=== PATIENT | female | born 2000 | race Caucasian/White ===

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

== ENCOUNTER 2019-05-14 11:47 | Emergency (ER) | payer MEDICAID ==
[~2019-05-14] VITALS: Ht 160 cm; Wt 81.6 kg
[2019-05-14 11:47] VITALS: BP_SYST 118
[2019-05-14 12:36] VITALS: BP_SYST 118
== END 2019-05-14 12:34 | disposition home or self-care (01) ==
LOC: SED 11:47
DX: R51 Headache (principal); J45.909 Unspecified asthma, uncomplicated
CPT/HCPCS: 99282

== ENCOUNTER 2020-03-31 20:25 | Emergency (ER) | payer MEDICAID ==
[~2020-03-31] VITALS: Ht 160 cm; Wt 90.7 kg
[2020-03-31 20:30] VITALS: BP_SYST 142
--- NOTE | 2020-03-31 20:30 | NUR ---
Patient triaged and placed in waiting room. VSS and patient appears in no acute distress at this time. Accompanied by MOTHER, awaiting available bed, and MD notified of need for MSE.
--- NOTE | 2020-03-31 21:36 | NUR ---
Placed in room 8 . 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 To gown for exam. Side rails up. Report given to GEOFFREY LIMON.
--- NOTE | 2020-03-31 21:50 | NUR ---
ER Dr. HOSKINS at bedside examining patient.
--- NOTE | 2020-03-31 21:55 | NUR ---
pt a&o x4 c/o of difficulty breathing for last three days, cough since july thats been worsening. pt has hx of asthma and has been using her nebulizer/inhaler that improves symptoms for only 30mins to an hour. pt was tested for COVID yesterday at [facility] and results came back today negative. pts last nebulizer treatment was 20 mins ago.
[2020-03-31] MEDS ORDERED: PREDNISONE 20 MG TABLET PO ONE (22:00)
--- NOTE | 2020-03-31 22:09 | NUR ---
patient tolerated medications well.
--- NOTE | 2020-03-31 22:20 | NUR ---
urine negative prior to radiology imaging.
--- NOTE | 2020-03-31 23:11 | NUR ---
respiratory at bedside for breathing treatment.
[2020-03-31] MEDS ORDERED: IPRATROPIUM/ALBUTEROL SULFATE 3 ML AMPUL.NEB (DUONEB) INH ONE (23:15)
[2020-03-31 23:40] VITALS: BP_SYST 129
--- NOTE | 2020-03-31 23:40 | NUR ---
Patient given written and verbal discharge instructions and verbalizes understanding. ER MD discussed with patient the results and treatment provided. Patient in stable condition. ID arm band removed. Rx of prednisone given. Patient educated on pain management and to follow up with PMD. Pain Scale 0/10. Opportunity for questions provided and answered. Medication side effect fact sheet provided.
== END 2020-03-31 23:40 | disposition home or self-care (01) ==
LOC: SED 20:25
DX: J45.901 Unspecified asthma with (acute) exacerbation (principal); G43.909 Migraine, unspecified, not intractable, without status migrainosus
CPT/HCPCS: 71045; 81025; 93005; 94640; 99283; J7512